=== PATIENT | female | born 1980 | race Hispanic/Latino ===

== ENCOUNTER 2017-11-20 16:50 | Inpatient (IN) | payer OTHER ==
[~2017-11-20] VITALS: Ht 154.9 cm; Wt 90.3 kg
[2017-11-20] MEDS ORDERED: MAGNESIUM SULFATE 1,000 ML IV PRN (16:56)
[2017-11-20] MEDS ORDERED: MAGNESIUM 4GM PREMIX 100ML 100 ML IV SCH (17:00)
[2017-11-20] MEDS ORDERED: OXYTOCIN-LR 20 UNITS/1000 ML 1,000 ML IV SCH (17:00)
[2017-11-20] MEDS ORDERED: PHARMACY COMMUNICATION MISC SCH (17:00)
[2017-11-20] MEDS ORDERED: CALCIUM GLUCONATE 1 GM/10 ML VIAL IV PRN (17:00)
[2017-11-20] MEDS ORDERED: MAGNESIUM 4GM PREMIX 100ML 100 ML IV ONE (17:28)
[2017-11-20] MEDS ORDERED: CELESTONE SOLUSPAN 6 MG/ML 5ML VIAL ONE (17:29)
[2017-11-20] MEDS ORDERED: MAGNESIUM SULFATE 1,000 ML IV ONE (17:29)
[2017-11-20] MEDS ORDERED: AMPICILLIN 2GM+NS 100ML 100 ML IV ONE (17:30)
[2017-11-20] MEDS: LACTATED RINGERS 1000ML 1,000 ML IV PRN (17:33)
[2017-11-20] MEDS: AMPICILLIN 2GM+NS 100ML 100 ML IV SCH (17:39)
[2017-11-20 17:46] LABS: HEMATOCRIT 37.1 % (36-48); MEAN CORPUSCULAR HEMOGLOBIN 30.7 pg (27.0-33.0); MEAN CORPUSCULAR VOLUME 90.3 fL (79-99); PLATELET COUNT (AUTO) 221 K/uL (130-400); RED BLOOD CELL COUNT(AUTO) 4.11 MIL/uL (4.00-5.50); RED CELL DISTRIBUTION WIDTH 13.9 % (11.0-15.5); WHITE BLOOD COUNT (AUTO) 12.6 K/uL (4.8-10.8)
[2017-11-20] MEDS ORDERED: CELESTONE SOLUSPAN 6 MG/ML 5ML VIAL IM SCH (18:00)
[2017-11-21] MEDS: AMPICILLIN 2GM+NS 100ML 100 ML IV SCH ×3 (00:14→11:00)
[2017-11-21 02:24] LABS: APPEARANCE,URINE Clear (CLEAR); BILIRUBIN,URINE Negative (NEGATIVE); COLOR,URINE Yellow (YELLOW); GLUCOSE, URINE (UA) Negative (NEGATIVE); KETONES,URINE >=160 mg/dL (NEGATIVE); LEUKOCYTE ESTERASE ,URINE Negative (NEGATIVE); NITRATE,URINE Negative (NEGATIVE); OCCULT BLOOD,URINE Moderate (NEGATIVE); PROTEIN,URINE Negative (NEGATIVE); UROBILINOGEN,URINE 0.2 mg/dL (0.2-1.0)
[2017-11-21 02:32] LABS: BACTERIA,URINE None Seen /HPF (None Seen); SQUAMOUS EPITHELIAL CELL,UR Few /LPF (0-2); WBC,URINE None Seen /HPF (0-1)
[2017-11-21] MEDS: LACTATED RINGERS 1000ML 1,000 ML IV PRN ×2 (05:04→20:06)
[2017-11-21] MEDS ORDERED: ACETAMINOPHEN EXTRA STRENGTH 500 MG TABLET PO PRN (07:45)
[2017-11-22] MEDS: LACTATED RINGERS 1000ML 1,000 ML IV PRN (04:32)
[2017-11-22 12:18] LABS: HEPATITIS Bs ANTIGEN SCREEN P Negative (Negative)
== END 2017-11-22 08:31 | disposition home or self-care (01) | DRG 782 ==
LOC: LDH 16:50 → OBSVTOIN 16:56
PROVIDERS: ADMIT Obstetrics & Gynecology; ATTEND Obstetrics & Gynecology
DX: O30.043 Twin pregnancy, dichorionic/diamniotic, third trimester (principal); O60.03 Preterm labor without delivery, third trimester; Z3A.30 30 weeks gestation of pregnancy
CPT/HCPCS: 36415; 76810; 81001; 83735; 85027; 86592; 86850; 86900; 86901; 87340; 96360; A4314; G0378; J0290; J0702; J3475; J7120

== ENCOUNTER → 2018-04-12 | Outpatient (CLI) | payer OTHER ==
[2018-04-12 11:23] LABS: BASOPHILS % (AUTO) 0.9 % (0.0-5.0); EOSINOPHILS % (AUTO) 0.9 % (0.0-8.0); HEMATOCRIT 38.9 % (36-48); LYMPHOCYTES % (AUTO) 31.6 % (21.0-51.0); MEAN CORPUSCULAR HGB CONC 33.5 g/dL (32.0-36.0); MEAN CORPUSCULAR VOLUME 89.4 fL (79-99); MONOCYTES % (AUTO) 6.6 % (3.0-13.0); PLATELET COUNT (AUTO) 245 K/uL (130-400); RED BLOOD CELL COUNT(AUTO) 4.35 MIL/uL (4.00-5.50); RED CELL DISTRIBUTION WIDTH 13.4 % (11.0-15.5); WHITE BLOOD COUNT (AUTO) 7.9 K/uL (4.8-10.8)
[2018-04-12 11:34] LABS: ALBUMIN 3.7 g/dL (3.5-5.0); BILIRUBIN,TOTAL 0.5 mg/dL (0.2-1.0); CREATININE 0.6 mg/dL (0.5-1.5); THYROID STIMULATING HORMONE 1.19 uIU/mL (0.36-3.74); TOTAL PROTEIN, SERUM 7.3 g/dL (6.0-8.3)
[2018-04-13 09:14] LABS: VITAMIN D, 25-HYDROXY 21.2 ng/mL (30.0-100.0)
== END | disposition home or self-care (01) ==
LOC: LAB 10:17
PROVIDERS: ATTEND Family Medicine
DX: M13.862 Other specified arthritis, left knee (principal); M13.861 Other specified arthritis, right knee; N92.6 Irregular menstruation, unspecified; R53.83 Other fatigue; E78.9 Disorder of lipoprotein metabolism, unspecified; E55.9 Vitamin D deficiency, unspecified
CPT/HCPCS: 36415; 73562; 80053; 80061; 82306; 84146; 84443; 85025

== ENCOUNTER → 2018-11-11 | Outpatient (CLI) | payer OTHER | END | disposition home or self-care (01) | LOC: RAH 15:59 | PROVIDERS: ATTEND Family Medicine | DX: M51.36 Other intervertebral disc degeneration, lumbar region (principal); M47.817 Spondylosis without myelopathy or radiculopathy, lumbosacral region | CPT/HCPCS: 72148 ==

== ENCOUNTER → 2019-09-22 | Outpatient (CLI) | payer OTHER ==
[2019-09-22 13:18] LABS: THYROID STIMULATING HORMONE 1.64 uIU/mL (0.36-3.74)
== END | disposition home or self-care (01) ==
LOC: LAB 12:15
PROVIDERS: ATTEND Obstetrics & Gynecology
DX: N92.1 Excessive and frequent menstruation with irregular cycle (principal)
CPT/HCPCS: 36415; 82670; 83001; 83002; 84144; 84146; 84402; 84403; 84439; 84443; 84481

== ENCOUNTER → 2020-01-12 | Outpatient (CLI) | payer OTHER | END | disposition home or self-care (01) | LOC: OIH 10:34 | PROVIDERS: ATTEND Podiatrist Foot & Ankle Surgery | DX: M79.672 Pain in left foot (principal); M79.671 Pain in right foot | CPT/HCPCS: 73630 ==

== ENCOUNTER → 2021-08-05 | Outpatient (CLI) | payer OTHER | END | disposition home or self-care (01) | LOC: RAH 08:53 | PROVIDERS: ATTEND Family Medicine | DX: M51.16 Intervertebral disc disorders with radiculopathy, lumbar region (principal); M48.061 Spinal stenosis, lumbar region without neurogenic claudication | CPT/HCPCS: 72148 ==

== ENCOUNTER 2021-08-29 13:00 | Observation (INO) | payer BC ==
[~2021-08-29] VITALS: Ht 154.9 cm; Wt 59.5 kg
[2021-08-29 14:34] LABS: BASOPHILS % (AUTO) 0.7 % (0.0-5.0); EOSINOPHILS % (AUTO) 1.3 % (0.0-8.0); LYMPHOCYTES % (AUTO) 41.7 % (21.0-51.0); MEAN CORPUSCULAR HEMOGLOBIN 30.6 pg (27.0-33.0); MEAN CORPUSCULAR HGB CONC 31.5 g/dL (32.0-36.0); MEAN CORPUSCULAR VOLUME 97.4 fL (79-99); MONOCYTES % (AUTO) 8.1 % (3.0-13.0); NEUTROPHILS % (AUTO) 48.1 % (40.0-77.0); PLATELET COUNT (AUTO) 195 K/uL (130-400); RED BLOOD CELL COUNT(AUTO) 4.21 MIL/uL (4.00-5.50); RED CELL DISTRIBUTION WIDTH 12.8 % (11.0-15.5); WHITE BLOOD COUNT (AUTO) 6.8 K/uL (4.8-10.8)
[2021-08-29 14:45] LABS: POTASSIUM 3.8 mmol/L (3.5-5.1)
[2021-08-31 08:49] VITALS: BP 99/53
[2021-08-31] MEDS ORDERED: MULT-1203 PO (09:43)
[2021-08-31] MEDS ORDERED: GABA-529 PO (09:43)
[2021-09-01] VITALS (16 sets, daily range): BP systolic 81–106; BP diastolic 38–68
[2021-09-01] MEDS: CEFAZOLIN SODIUM 1 GM VIAL IVP SCH ×4 (06:00→15:56)
[2021-09-01] MEDS ORDERED: SUCCINYLCHOLINE CHLORIDE 20 MG/ML 10 ML VIAL ONE (06:58)
[2021-09-01] MEDS ORDERED: LIDOCAINE PF 100MG/5ML (2%) SYRINGE 5ML ONE (06:58)
[2021-09-01] MEDS ORDERED: GLYCOPYRROLATE 1 MG/5 ML SYRINGE ONE ×2 (06:59→09:48)
[2021-09-01] MEDS ORDERED: DEXAMETHASONE SOD PHOSPHATE 10MG/ML 1ML VIAL ONE ×2 (06:59→07:05)
[2021-09-01] MEDS ORDERED: THROMBIN-JMI 20000 UNIT KIT TP ONE (07:00)
[2021-09-01] MEDS ORDERED: MORPHINE PF 100MG/10ML AMP IV ONE (07:00)
[2021-09-01] MEDS ORDERED: NEOSTIGMINE 5MG/5ML SYR IV ONE (07:00)
[2021-09-01] MEDS ORDERED: PROPOFOL 10 MG/ML 20ML VIAL IV ONE (07:00)
[2021-09-01] MEDS ORDERED: ONDANSETRON 4MG INJ ONE ×2 (07:00→08:39)
[2021-09-01] MEDS ORDERED: CEFAZOLIN SODIUM 1 GM VIAL ONE (07:00)
[2021-09-01] MEDS ORDERED: MIDAZOLAM HCL 1 MG/ML 2ML VIAL ONE (07:00)
[2021-09-01] MEDS ORDERED: ROCURONIUM 10MG/1ML SYR 10 MG/ML ML ONE ×2 (07:00→08:25)
[2021-09-01] MEDS ORDERED: FENTANYL CITRATE PF 50 MCG/1 ML 2ML VIAL ONE ×2 (07:01→08:15)
[2021-09-01] MEDS ORDERED: BUPIVACAINE/EPI/PF 0.5% 30ML VIAL IJ SCH (08:00)
[2021-09-01] MEDS ORDERED: BUPIVACAINE/EPI/PF 0.25% 30ML VIAL IJ SCH (08:00)
[2021-09-01] MEDS ORDERED: ARTIFICIAL TEARS 3.5 GM OINTMENT ONE (08:48)
[2021-09-01] MEDS ORDERED: PROMETHAZINE HCL 25 MG/ML 1ML AMPULE IM PRN (10:30)
[2021-09-01] MEDS ORDERED: 0.9%NACL 10ML VIAL IVP PRN (10:30)
[2021-09-01] MEDS ORDERED: HYDROCODONE/ACETAMINOPHEN 5/325 MG TAB PO PRN (10:30)
[2021-09-01] MEDS: DEXAMETHASONE SOD PHOSPHATE 4 MG/ML 1ML VIAL IVP SCH ×3 (10:30→21:05)
[2021-09-01] MEDS ORDERED: MORPHINE 2 MG SYG IVP PRN (10:30)
[2021-09-01] MEDS: LACTATED RINGERS 1000ML 1,000 ML IV SCH ×2 (11:32→23:50)
[2021-09-01] MEDS ORDERED: DiphenhydrAMINE HCL 50 MG/ML VIAL IV ONE (21:00)
[2021-09-01] MEDS ORDERED: GABAPENTIN 100 MG CAPSULE PO SCH (21:00)
[2021-09-01] MEDS ORDERED: MULTIVITAMIN TABLET PO SCH (21:00)
[2021-09-02 03:59] VITALS: BP 90/54
[2021-09-02] MEDS: DEXAMETHASONE SOD PHOSPHATE 4 MG/ML 1ML VIAL IVP SCH ×2 (05:25→09:40)
[2021-09-02 08:00] VITALS: BP 90/54
== END 2021-09-02 09:55 | disposition home or self-care (01) ==
LOC: DAHIP 09-01 06:03 → 4AH 09-01 11:31
PROVIDERS: ADMIT Neurological Surgery; ATTEND Neurological Surgery
DX: M51.26 Other intervertebral disc displacement, lumbar region (principal); Z20.822 Contact with and (suspected) exposure to COVID-19; Z98.84 Bariatric surgery status
CPT/HCPCS: 36415; 63047; 71045; 72020; 80051; 81025; 85025; 87635; 96374; 96375; 96376 ×2; A4215; A4221; A4222; A4223; A4344; A4600; A4649 ×3; A4663; A4930; A6260; G0378 ×24; J0330; J0690 ×3; J1100 ×6; J1200; J2001; J2250; J2274; J2405 ×2; J2704; J2710; J3010 ×2; J3490 ×3; J7030; J7120 ×3

== ENCOUNTER 2022-08-04 10:51 | Emergency (ER) | payer BC ==
[~2022-08-04] VITALS: Ht 154.9 cm; Wt 57.6 kg
[~2022-08-04 10:51] MED LIST: GABA-529 PO; MULT-1203 PO
[2022-08-04 11:23] LABS: APPEARANCE,URINE CLEAR (CLEAR); BILIRUBIN,URINE NEGATIVE (NEGATIVE); COLOR,URINE LIGHT-YELLOW (YELLOW); GLUCOSE, URINE (UA) NEGATIVE (NEGATIVE); KETONES,URINE NEGATIVE (NEGATIVE); LEUKOCYTE ESTERASE ,URINE NEGATIVE Leu/uL (NEGATIVE); NITRATE,URINE NEGATIVE (NEGATIVE); OCCULT BLOOD,URINE NEGATIVE (NEGATIVE); PH,URINE 6.5 (5.0-8.0); PROTEIN,URINE NEGATIVE (NEGATIVE); UROBILINOGEN,URINE 0.2 mg/dL (0.2-1.0)
[2022-08-04 11:26] LABS: HEMATOCRIT 41.7 % (36-48); MEAN CORPUSCULAR HEMOGLOBIN 30.8 pg (27.0-33.0); MEAN CORPUSCULAR HGB CONC 33.3 g/dL (32.0-36.0); MEAN CORPUSCULAR VOLUME 92.5 fL (79-99); PLATELET COUNT (AUTO) 127 K/uL (130-400); RED BLOOD CELL COUNT(AUTO) 4.51 MIL/uL (4.00-5.50); RED CELL DISTRIBUTION WIDTH 12.3 % (11.0-15.5); WHITE BLOOD COUNT (AUTO) 4.9 K/uL (4.8-10.8)
[2022-08-04 11:33] LABS: CREATININE 0.7 mg/dL (0.5-1.5); POTASSIUM 3.8 mmol/L (3.5-5.1)
[2022-08-04 11:37] LABS: ALBUMIN 3.4 g/dL (3.5-5.0); TOTAL PROTEIN, SERUM 7.2 g/dL (6.0-8.3)
[2022-08-04 12:17] LABS: BAND NEUTROPHILS % (MANUAL) 2 % (0-2); LYMPHOCYTES % (MANUAL) 37 % (22-44); MAN.DIFF COMMENT-IMPRESSION MANUAL DIFFERENTIAL; MONOCYTES % (MANUAL) 5 % (2-9); PLATELET MORPHOLOGY COMMENT ADEQUATE; SEGMENTED NEUTROPHILS % 56 % (40-70)
[2022-08-04] MEDS ORDERED: 0.9%NACL 1000ML 1,000 ML IV ONE (13:00)
[2022-08-04] MEDS ORDERED: ONDANSETRON 4MG INJ IVP ONE (13:00)
[2022-08-04 13:29] VITALS: BP 94/63
[2022-08-04] MEDS ORDERED: KETOROLAC 15MG/ML VIAL (15MG/ML) IV SCH (13:30)
[2022-08-04] MEDS ORDERED: ONDA4TAB10 PO (13:57)
== END 2022-08-04 14:08 | disposition home or self-care (01) ==
LOC: EDH 10:51
DX: R11.0 Nausea (principal); R35.0 Frequency of micturition; R10.9 Unspecified abdominal pain
CPT/HCPCS: 99284; 96374; 96361; 96375; 86677; 80053; 84703; 83690; 85025; 81003; 36415; J7030; J2405; J1885

== ENCOUNTER → 2022-08-15 | Outpatient (CLI) | payer BC ==
[~2022-08-15] MED LIST changes: +ONDA4TAB10 PO
== END | disposition home or self-care (01) ==
LOC: RAH 07:38
PROVIDERS: ATTEND Family Medicine
DX: R10.2 Pelvic and perineal pain (principal); R10.9 Unspecified abdominal pain
CPT/HCPCS: 76700; 76856